=== PATIENT | female | born 1975 | race Caucasian/White ===

== ENCOUNTER 2019-05-12 23:35 | Emergency (ER) | payer OTHER ==
[~2019-05-12] VITALS: Ht 167.6 cm; Wt 85.0 kg
[~2019-05-12 23:35] MED LIST: IBUP-1542 PO
[2019-05-12 23:44] VITALS: BP 146/76; PULSE 81; RESP 17; Ht 167.6 cm; Wt 85.0 kg
[2019-05-13] MEDS ORDERED: HYDROCODONE/APAP (10/325) TAB PO ONE (03:00)
--- NOTE | 2019-05-13 05:12 | ERD ---
ER Documentation Chief Complaint Chief Complaint S/P [facility] fall, c/o left knee pain, nausea HPI 43-year-old female presented to ED for left knee pain. Patient bumped her knee on a table. Patient did not pass out or hit her head. Patient denies any allergies to medications states her only past medical history is high blood pressure and anemia which she takes medications for. Patient is able to ambulate without difficulty and states the pain is a 10 out of 10. Patient's vitals were all within normal limits. ROS All systems reviewed and are negative except as per history of present illness. Medications Home Meds Active Scripts Ibuprofen* (Motrin*) 600 Mg Tab, 600 MG PO Q6, #30 TAB Prov:OSCAR MORA PA-C 05/13/19 Allergies Allergies: Coded Allergies: No Known Allergy (Unverified , 05/13/19) PMhx/Soc Medical and Surgical Hx: pt denies Surgical Hx History of Surgery: No Anesthesia Reaction: No Hx Neurological Disorder: No Hx Respiratory Disorders: No Hx Cardiac Disorders: No Hx Psychiatric Problems: No Hx Miscellaneous Medical Probl: No Hx Alcohol Use: No Hx Substance Use: No Hx Tobacco Use: No Smoking Status: Never smoker FmHx Family History: No diabetes, No coronary disease, No other Physical Exam Vitals Vital Signs Date Temp Pulse Resp B/P (MAP) Pulse Ox O2 O2 Flow FiO2 Time Delivery Rate 05/12/19 98.9 81 17 146/76 99 23:44 (99) Physical Exam GENERAL: Moderate Distress CHEST: Clear to auscultation bilaterally. There are no rales, wheezes or rhonchi. HEART: Regular rate and rhythm. No murmurs, clicks, rubs or gallops. EXTREMITIES: mild swelling and deformity to left knee. Patient has full range of motion in the extremity no signs of open fractures or exposure of soft tissue. No skin pallor noted. Patient has intact gross motor function and distal pulses are present and equal bilaterally. NEUROLOGIC: Motor strength is 5 out of 5 strength in {Location of Extremity}. Sensation grossly intact. Results 24 hrs Current Medications Medications Dose Sig/Teresa Start Time Status Last (Trade) Ordered Route PRN Stop Time Admin Dose Reason Admin 1 tab ONCE ONCE 05/13/19 DC Acetaminophen PO 03:00 / 05/13/19 03:01 Hydrocodone Bitart (Olive ()) Procedures/MDM ED course: The patient was stable throughout the ED course. The patient and/or family informed of laboratory and diagnostic imaging results throughout the ED course. Diagnostic imaging: Read by radiologist PROCEDURE: Left knee series CLINICAL INDICATION: Trauma TECHNIQUE: AP lateral and oblique images were obtained left knee COMPARISON: None FINDINGS: No evidence acute fracture dislocation. The bony mineralization is normal. No focal bony blastic or lytic lesions. No evidence of left knee joint effusion. Soft tissues unremarkable. IMPRESSION: No evidence acute fracture dislocation or joint effusion Procedures: Attempts to apply knee brace and give the patient crutches was made. Patient was very beer verbally abusive to nursing staff and refused the crutches and the brace. Medications given in ER: Olive was ordered for the patient but she refused to take it Patient tolerated medication well with no adverse reactions. Patient reported improvement in pain. Medical decision making: The 43-year-old female presented to ED for left knee pain. Patient had her knee on a table. Patient's physical exam was unremarkable except for mild pain to palpation to the left knee. Patient had good neurovascular examination. Patient states her pain was a 10 out of 10. Olive was ordered to treat the patient's pain but she refused. Patient was very rude and verbally abusive to nursing staff during her visit. Patient was not compliant with the treatment in the ED. The patient was sent back for an x-ray which came back unremarkable. I went to follow-up with the patient to give the x-ray findings with her. At this time I have low suspicion for fracture, dislocation, osteomyelitis, compartment syndrome, neurovascular injury. An attempt was made to put an Hero wrap on the patient's knee and give her crutches. Patient was very upset with her long way at the ED and continued to be verbally abusive to staff. Upon discharge she refused to sign discharge paperwork. Admitted attempt to speak with the patient again to make sure she was clear on her injuries and advised her that just because she does not have a fracture dislocation does not mean she does not have an injury to her ligament. I recommended the patient allow us to place an Hero wrap and let her use crutches. The patient was very upset with me and says she did not like how long she had to wait. I advised the patient that she is running the risk of further injuring her knee and she says she does not care that she is leaving. The patient was not under the influence and had clear thought process with family members present during the time of discharge. The patient has the full mental capacity of making clear concise decisions on her own. Advised the patient that if symptoms worsen she should return to ED otherwise follow-up with her primary care provider in 1 to 2 days. Prescription for home: Motrin I have discussed with the patient proper use and common side effects to expert with the medication . I advised the patient/family to speak with the pharmacist dispensing the medication to be advised of any potential drug interactions with other medication or supplements they may be taking. Discharge: At this time, patient is stable for discharge and outpatient management. I have instructed the patient to follow-up with his\her primary care physician in 1 to 2 days. I have discussed with the patient the possibility of needing to see a specialist for further work-up and imaging studies if symptoms persist. I have instructed the patient to promptly return to the ER for any new or worsening symptoms including increased pain, fever, nausea, vomiting, weakness or LOC. The patient and\or family expressed understanding of and agreement with this plan. All questions were answered. Home care instructions were provided. Disclaimer: Inadvertent spelling and grammatical errors are likely due to EHR\dictation software use and do not reflect on the overall quality of patient care. Also, please note that the electronic time recorded on the note does not necessarily reflect the actual time of the patient encounter. Departure Diagnosis: Primary Impression: Sprain of left knee Encounter type: initial encounter Involved ligament of knee: unspecified ligament Qualified Codes: S83.92XA - Sprain of unspecified site of left knee, initial encounter Condition: Stable Patient Instructions: Knee Sprain Referrals: [facility] YOU HAVE RECEIVED A MEDICAL SCREENING EXAM AND THE RESULTS INDICATE THAT YOU DO NOT HAVE A CONDITION THAT REQUIRES URGENT TREATMENT IN THE EMERGENCY DEPARTMENT. FURTHER EVALUATION AND TREATMENT OF YOUR CONDITION CAN WAIT UNTIL YOU ARE SEEN IN YOUR DOCTORS OFFICE WITHIN THE NEXT 1-2 DAYS. IT IS YOUR RESPONSIBILITY TO MAKE AN APPOINTMENT FOR FOLOW-UP CARE. IF YOU HAVE A PRIMARY DOCTOR --you should call your primary doctor and schedule an appointment IF YOU DO NOT HAVE A PRIMARY DOCTOR YOU CAN CALL OUR PHYSICIAN REFERRAL HOTLINE AT IF YOU CAN NOT AFFORD TO SEE A PHYSICIAN YOU CAN CHOSE FROM THE FOLLOWING [facility] [address] [facility] [address] [facility] [address] [facility] [address] [facility] [address] [facility]. [facility] [address] [facility]. [facility] YOU HAVE RECEIVED A MEDICAL SCREENING EXAM AND THE RESULTS INDICATE THAT YOU DO NOT HAVE A CONDITION THAT REQUIRES URGENT TREATMENT IN THE EMERGENCY DEPARTMENT. FURTHER EVALUATION AND TREATMENT OF YOUR CONDITION CAN WAIT UNTIL YOU ARE SEEN IN YOUR DOCTORS OFFICE WITHIN THE NEXT 1-2 DAYS. IT IS YOUR RESPONSIBILITY TO MA KE AN APPOINTMENT FOR FOLOW-UP CARE. IF YOU HAVE A PRIMARY DOCTOR --you should call your primary doctor and schedule and appointment IF YOU DO NOT HAVE A PRIMARY DOCTOR YOU CAN CALL OUR PHYSICIAN REFERRAL HOTLINE AT . IF YOU CAN NOT AFFORD TO SEE A PHYSICIAN YOU CAN CHOSE FROM THE FOLLOWING [facility] INSTITUTIONS: [facility] [address] [place] [address] [facility] [address] [place] [address] [facility] [address] [place] [address] [facility] Care 7 a.m.- 11 p.m. Every Day of the Week NO APPOINTMENT OR AUTHORIZATION NEEDED Additional Instructions: Call your primary care doctor TOMORROW for an appointment during the next 1-2 days.See the doctor sooner or return here if your condition worsens before your appointment time. OSCAR MORA PA-C May 13, 2019 05:12
== END 2019-05-13 03:46 | disposition home or self-care (01) ==
LOC: FTE 23:35
DX: S83.92XA Sprain of unspecified site of left knee, initial encounter (principal); W18.30XA Fall on same level, unspecified, initial encounter; Y92.9 Unspecified place or not applicable
CPT/HCPCS: 73562; Z7502